=== PATIENT | female | born 1960 | race Caucasian/White ===

== ENCOUNTER → 2016-12-22 | Outpatient (CLI) | payer MEDICARE ==
--- NOTE | 2016-12-22 14:59 | CT ---
EXAMINATION TYPE: CT sinus wo con DATE OF EXAM: 12/22/2016 2:37 PM COMPARISON: NONE HISTORY: Chronic maxillary sinusitis per prescription. Face pain and sinus infection Since September 222015 per patient, history of prior sinus surgery CT DLP: 591 mGycm. Automated Exposure Control for Dose Reduction was Utilized. TECHNIQUE: CT scan of the sinuses is performed without contrast, axial images are obtained, coronal r eformatted images are also reviewed. FINDINGS: There is 8 mm mucous retention cyst or polyp in the posterior inferior right maxillary sinu s. There is evidence of prior surgery at ostiomeatal complex bilaterally. No new suspicious opacifica tion or air-fluid levels is present. The surgically treated ostiomeatal complex is patent bilaterall y on the coronal images. Visualized portion of mastoid air cells show no abnormal opacification. The globes are intact bilate rally. IMPRESSION: Evidence of prior successful sinus surgery without acute sinus disease identified current ly.
== END | disposition home or self-care (01) ==
LOC: RADCTMAIN 14:13
PROVIDERS: ATTEND Internal Medicine
DX: J32.0 Chronic maxillary sinusitis (principal); Z98.890 Other specified postprocedural states
CPT/HCPCS: 70486

== ENCOUNTER → 2016-12-30 | Outpatient (CLI) | payer MEDICARE ==
--- NOTE | 2016-12-31 07:54 | MM ---
Reason for exam: screening (asymptomatic). Last mammogram was performed 1 year and 9 months ago. History: Patient history of other cancer. Taking hormonal contraceptives for 3 years. Physical Findings: A clinical breast exam by your physician is recommended on an annual basis and results should be correlated with mammographic findings. MG 3D Screening Mammo W/Cad Bilateral CC and MLO view(s) were taken. Prior study comparison: March 26, 2015, bilateral MG screening mammo w CAD. April 07, 2011, CAD bilateral diagnostic mammogram. The breast tissue is heterogeneously dense. This may lower the sensitivity of mammography. No significant changes when compared with prior studies. ASSESSMENT: Benign, BI-RAD 2 RECOMMENDATION: Routine screening mammogram of both breasts in 1 year.
== END | disposition home or self-care (01) ==
LOC: RADMAMWWP 10:48
PROVIDERS: ATTEND Obstetrics & Gynecology
DX: Z12.31 Encounter for screening mammogram for malignant neoplasm of breast (principal)
CPT/HCPCS: 77063; G0202

== ENCOUNTER → 2017-08-09 | Outpatient (CLI) | payer MEDICARE ==
--- NOTE | 2017-08-09 14:57 | US ---
EXAMINATION TYPE: US venous doppler duplex LE BI DATE OF EXAM: 08/09/2017 2:20 PM COMPARISON: NONE CLINICAL HISTORY: M79.661/M79.662 pain in lower extremities. Pt states bilateral leg pain SIDE PERFORMED: Bilateral TECHNIQUE: The lower extremity deep venous system is examined utilizing real time linear array sonog diane with graded compression, doppler sonography and color-flow sonography. VESSELS IMAGED: External Iliac Vein (EIV) Common Femoral Vein Deep Femoral Vein Greater Saphenous Vein * Femoral Vein Popliteal Vein Small Saphenous Vein * Proximal Calf Veins (* superficial vessels) Grayscale, color doppler, spectral doppler imaging performed of the deep veins of the lower extremiti es. There is normal flow, compressibility, vascular waveforms. Right Leg: Negative for DVT Left Leg: Negative for DVT IMPRESSION: No evidence for DVT at this time.
== END | disposition home or self-care (01) ==
LOC: RADUSWWP 13:56
PROVIDERS: ATTEND Internal Medicine Hematology & Oncology
DX: M79.662 Pain in left lower leg (principal); M79.661 Pain in right lower leg
CPT/HCPCS: 93970

== ENCOUNTER → 2018-03-23 | Outpatient (CLI) | payer MEDICARE ==
--- NOTE | 2018-03-27 11:10 | MM ---
Reason for exam: screening (asymptomatic). Last mammogram was performed 1 year and 3 months ago. History: Patient history of other cancer. Taking hormonal contraceptives for 3 years. Physical Findings: A clinical breast exam by your physician is recommended on an annual basis and results should be correlated with mammographic findings. MG 3D Screening Mammo W/Cad Bilateral CC and MLO view(s) were taken. Prior study comparison: December 30, 2016, bilateral MG 3d screening mammo w/cad. March 26, 2015, bilateral MG screening mammo w CAD. The breast tissue is heterogeneously dense. This may lower the sensitivity of mammography. No suspicious abnormality. No significant changes when compared with prior studies. ASSESSMENT: Negative, BI-RAD 1 RECOMMENDATION: Routine screening mammogram of both breasts in 1 year.
== END | disposition home or self-care (01) ==
LOC: RADMAMWWP 15:14
PROVIDERS: ATTEND Obstetrics & Gynecology
DX: Z12.31 Encounter for screening mammogram for malignant neoplasm of breast (principal)
CPT/HCPCS: 77063; 77067

== ENCOUNTER → 2019-05-01 | Outpatient (CLI) | payer MEDICARE ==
--- NOTE | 2019-05-02 12:50 | MM ---
Reason for exam: screening (asymptomatic). Last mammogram was performed 1 year and 1 month ago. History: Patient is postmenopausal and has history of other cancer at age 38. Taking hormonal contraceptives for 3 years. Physical Findings: A clinical breast exam by your physician is recommended on an annual basis and results should be correlated with mammographic findings. MG 3D Screening Mammo W/Cad Bilateral CC and MLO view(s) were taken. Prior study comparison: March 23, 2018, bilateral MG 3d screening mammo w/cad. December 30, 2016, bilateral MG 3d screening mammo w/cad. The breast tissue is heterogeneously dense. This may lower the sensitivity of mammography. No suspicious abnormality. No significant new finding when compared with prior studies. ASSESSMENT: Negative, BI-RAD 1 RECOMMENDATION: Routine screening mammogram of both breasts in 1 year.
== END | disposition home or self-care (01) ==
LOC: RADMAMWWP 09:24
PROVIDERS: ATTEND Family Medicine
DX: Z12.31 Encounter for screening mammogram for malignant neoplasm of breast (principal)
CPT/HCPCS: 77063; 77067

== ENCOUNTER → 2019-08-13 | Outpatient (CLI) | payer MEDICARE ==
--- NOTE | 2019-08-13 13:55 | US ---
EXAMINATION TYPE: US kidneys/renal and bladder DATE OF EXAM: 08/13/2019 COMPARISON: NONE CLINICAL HISTORY: 58-year-old female N39.0 UTI. TECHNIQUE: Multiple sonographic images of the kidneys and bladder are obtained. FINDINGS: EXAM MEASUREMENTS: Right Kidney: 10.6 x 4.1 x 4.8 cm Left Kidney: 10.4 x 4.9 x 5.2 cm Right Kidney: Mild pelvicaliectasis. Left Kidney: No hydronephrosis. Bladder: wnl Bilateral Jets seen: Yes IMPRESSION: Mild right-sided pelvicaliectasis/hydronephrosis. This may be transient as the right ureteral jet is visualized. Short interval follow-up recommended.
== END | disposition home or self-care (01) ==
LOC: RADUSWWP 10:53
PROVIDERS: ATTEND Urology
DX: N39.0 Urinary tract infection, site not specified (principal); Z88.2 Allergy status to sulfonamides; Z88.1 Allergy status to other antibiotic agents; Z88.8 Allergy status to other drugs, medicaments and biological substances
CPT/HCPCS: 76770

== ENCOUNTER → 2020-01-02 | Outpatient (CLI) | payer MEDICARE ==
--- NOTE | 2020-01-02 13:02 | US ---
EXAMINATION TYPE: US kidneys/renal and bladder DATE OF EXAM: 01/02/2020 COMPARISON: US 08/13/2019 CLINICAL HISTORY: R93.4 History of hydronephrosis F/U. Follow up right hydronephrosis from 2019 ultra sound EXAM MEASUREMENTS: Right Kidney: 9.9 x 4.6 x 4.7 cm Left Kidney: 10.4 x 4.6 x 4.1 cm Right Kidney: Stable mild pelvocaliectasis Left Kidney: no hydronephrosis Bladder: wnl Bilateral Jets seen: no No nephrolithiasis is seen. No masses are identified. The urinary bladder is anechoic. Bilateral u reteral jets are seen. IMPRESSION: Stable mild right pelvocaliectasis in comparison to the ultrasound dated 08/13/2019. CT urogram could be considered if there is further clinical concern.
== END | disposition home or self-care (01) ==
LOC: RADUSWWP 11:47
PROVIDERS: ATTEND Urology
DX: N28.89 Other specified disorders of kidney and ureter (principal)
CPT/HCPCS: 76770

== ENCOUNTER 2020-01-29 10:22 | Emergency (ER) | payer MEDICARE ==
[2020-01-29 10:27] VITALS: RESP 18; TEMP 97.8
[2020-01-29] MEDS ORDERED: MORPHINE SULFATE 4 MG/ML SYRINGE IM STA (11:25)
--- NOTE | 2020-01-29 12:01 | CT ---
EXAMINATION TYPE: CT facial bones wo con DATE OF EXAM: 01/29/2020 HISTORY: right orbital contusion and neck pain post fall CT DLP: 815.9 mGycm. Automated Exposure Control for Dose Reduction was Utilized. TECHNIQUE: CT scan of the head is performed without contrast. COMPARISON: CT brain and cervical spine of the same day FINDINGS a small amount of fat stranding is seen inferior to the right orbit and anterior to the righ t maxilla. No well-defined hematoma seen. Globes are symmetric and intact maintaining a normal rounde d morphology with lenses in place. No post septal inflammatory fat stranding or fluid collection. Visualized paranasal sinuses and mastoid air cells are well aerated with scant mucosal thickening of the right maxillary sinus. Antrostomy defects are seen from prior surgery. No acute displaced facial bone fracture. Nasal septum and nasal spine are intact. Zygomatic arches are intact. Bony orbits appe ar intact. Visualized portions of the brain will be discussed in the brain dictation of the same date . IMPRESSION: 1. No acute displaced facial bone fracture. 2. Mild right infraorbital subcutaneous edema without well-defined hematoma. No CT evidence of globe rupture or post septal edema.
--- NOTE | 2020-01-29 12:01 | XR ---
EXAMINATION TYPE: XR knee limited RT DATE OF EXAM: 01/29/2020 CLINICAL HISTORY: Pain after fall injury few days earlier. TECHNIQUE: Three views of the right knee are obtained. COMPARISON: None. FINDINGS: There is no acute fracture/dislocation evident in right knee. Fairly moderate tricompartme nt joint space loss without significant spurring. The overlying soft tissue appears unremarkable. IMPRESSION: There is no acute fracture or dislocation in the right knee.
--- NOTE | 2020-01-29 12:02 | XR ---
EXAMINATION TYPE: XR tibia fibula LT DATE OF EXAM: 01/29/2020 CLINICAL HISTORY: Pain since falling injury a few days ago. TECHNIQUE: Two views of the left leg are obtained. COMPARISON: None. FINDINGS: There is no acute fracture or dislocation seen in the left tibia or fibula. The left knee joint shows [id number] tricompartment joint space loss. Visualized portion of the left ankle j oint is within normal limits. Mild diffuse subcutaneous edema lateral aspect noted. IMPRESSION: There is no acute fracture or dislocation seen in the left tibia or fibula.
--- NOTE | 2020-01-29 12:04 | XR ---
EXAMINATION TYPE: XR chest 2V DATE OF EXAM: 01/29/2020 COMPARISON: NONE HISTORY: Trauma several days prior and pain TECHNIQUE: Frontal and lateral views of the chest are obtained. FINDINGS: There is no focal air space opacity, pleural effusion, or pneumothorax seen. The cardiac silhouette size is within normal limits. The osseous structures are intact. IMPRESSION: No acute cardiopulmonary process.
--- NOTE | 2020-01-29 12:10 | CT ---
EXAMINATION TYPE: CT brain lauraine wo con DATE OF EXAM: 01/29/2020 COMPARISON: Facial bone CT of the same date HISTORY: right orbital contusion and neck pain post fall. Head and neck pain. CT DLP: 1100.1 mGycm. Automated Exposure Control for Dose Reduction was Utilized. TECHNIQUE: CT scan of the head and cervical spine are performed without contrast. FINDINGS: There is no acute intracranial hemorrhage, mass effect, or midline shift identified. The ventricles and sulci are within normal limits in size. The globes are intact and the visualized sin uses are clear. Calcification along the right tentorium cerebelli is incidentally seen. There is motion artifact on the images limiting evaluation. There is grade 1 anterolisthesis of C3 on C4 without facet malalignment. This is likely on a degenerative basis. There is also grade 1 anterol isthesis of C4 and C5 without facet malalignment. Mild to moderate degenerative changes of the cervic al spine with multilevel uncovertebral hypertrophy, anterior aspect, and intervertebral disc space na rrowing as well as facet arthropathy. Slight reversal usual cervical lordosis. Cervical spine is visu alized in its entirety from C1 through upper thoracic levels and demonstrates satisfactory alignment of vertebral body heights. Prevertebral soft tissue appears within normal limits. The C1-C2 articul ation is unremarkable. IMPRESSION: 1. Limited evaluation of the cervical spine due to patient motion. There is no gross evidence of acut e fracture or dislocation evident in the cervical spine. Moderate degenerative disc disease. Multilev el malalignment is likely on a degenerative basis. 2. No acute intracranial hemorrhage, mass effect, or midline shift is seen. 3. Reversal usual cervical lordosis may be on the basis of muscular strain/spasm or patient positioni ng.
[2020-01-29 12:25] VITALS: BP 149/89; PULSE 81
--- NOTE | 2020-01-29 12:59 | ED ---
Fall HPI - General Chief Complaint: Fall Stated Complaint: fall Time Seen by Provider: 01/29/20 11:01 Source: patient Mode of arrival: ambulatory - History of Present Illness Initial Comments: 59-year-old female presenting today for chief complaint of fallx 6 days ago. Patient on 325mg ASA, no other thinners. Patient states she fell while carrying her grandson child on of last week. Patient states that she hit her head she states she also hit her left anterior barbour and has had pain in the neck and right anterior knee, Denies abdominal pain, flank pain, nausea, vomiting. Admits to occasional MADRID, and fogginess. Denies chest pain, SOB, or syncope. Denies visual changes, speech changes, weakness, loss of bowel bladder control. Patient has no other complaints. Upon arrival patient appears well there is no signs of acute distress - Related Data Allergies Allergy/AdvReac Type Severity Reaction Status Date / Time divalproex sodium Allergy Unknown Verified 01/29/20 10:28 [From Depakote] egg Allergy Unknown Verified 01/29/20 10:28 erythromycin base Allergy Unknown Verified 01/29/20 10:28 Sulfa (Sulfonamide Allergy Unknown Verified 01/29/20 10:28 Antibiotics) topiramate [From Topamax] Allergy Unknown Verified 01/29/20 10:28 Review of Systems ROS Statement: Those systems with pertinent positive or pertinent negative responses have been documented in the HPI. ROS Other: All systems not noted in ROS Statement are negative. Past Medical History Past Medical History: Fibromyalgia Additional Past Medical History / Comment(s): lupus, osteopenia History of Any Multi-Drug Resistant Organisms: None Reported Past Psychological History: No Psychological Hx Reported Smoking Status: Never smoker Past Alcohol Use History: None Reported Past Drug Use History: None Reported General Exam - General Exam Comments Initial Comments: General: The patient is awake and alert, in no distress, and does not appear acutely ill. Eye: +3 mm pupils are equal, round and reactive to light, extra-ocular movements are intact. No nystagmus. There is normal conjunctiva bilaterally. No signs of icterus. Ears, nose, mouth and throat: There are moist mucous membranes and no oral lesions. Mild ecchymosis of the lower portion of the right eye. No proptosis. No palpable defect of the orbits. Patient is no raccoon or Hackett sign.TMs within normal limits. Neck: The neck is supple, there is no tenderness or JVD. Patient is palpable paravertebral tenderness of the cervical spine. Mild midline tenderness. Cardiovascular: There is a regular rate and rhythm. No murmur, rub or gallop is appreciated. Respiratory: Lungs are clear to auscultation, respirations are non-labored, breath sounds are equal. No wheezes, stridor, rales, or rhonchi. Gastrointestinal: Soft, non-distended, non-tender abdomen without masses or organomegaly noted. There is no rebound or guarding present. No flank or back bruising. No midline tenderness of the thoracic or lumbar spine. Musculoskeletal: Normal ROM, no tenderness of the hips, ankles, feet b/l. Mild tenderness to palpation of the right aneterior knee, very small circular bruise. Extensor mechanism intact. Strength 5/5 of the UE and LE b/l. Sensation intact of nayely UE and LE b/l. Radial and P pulses equal bilaterally 2+. Neurological: A&O x 3. CN II-XII intact, There are no obvious motor or sensory deficits. Coordination appears grossly intact. Speech is normal. Skin: Skin is warm and dry and no rashes or lesions are noted. Ecchymosis of the left lower anterior leg, mild swelling. Psychiatric: Cooperative, appropriate mood & affect, normal judgment. Limitations: no limitations Course Vital Signs 01/29/20 01/29/20 10:24 12:25 Temperature 97.8 F Pulse Rate 88 81 Respiratory 18 18 Rate Blood Pressure 138/84 149/89 O2 Sat by Pulse 98 100 Oximetry Medical Decision Making - Medical Decision Making 59yo female presents today for fall that occurred [address] of the brain C-spine revealed no acute abnormality. No fracture present. Patient has known neurovascular deficits. Patient has no weakness of the upper or lower extremity sparing the loss of bowel bladder control urinary retention. Patient did have some mild right anterior knee pain no evidence of fracture on physical examination week or so difficulty. There is ecchymosis the left anterior barbuor. Patient has swelling. Patient had no hip pain no low back or thoracic pain. At this time feel patient is stable for discharge with outpatient primary care follow-up. Return for emergent discussed at length as well as concussion protocols patient verbalized understanding was discharged appearing well patient doesn't follow up with her neurologist on Tuesday. Case was discussed with attending provider Dr. Pires who was agreeable to care plan and discharge. Disposition Clinical Impression: Fall, Ecchymosis of right eye, Left leg pain, Traumatic ecchymosis of left lower leg, Right knee pain, Neck pain, Concussion Disposition: HOME SELF-CARE Condition: Good Instructions (If sedation given, give patient instructions): Concussion (ED), Ecchymosis (ED) Additional Instructions: Please use medication as discussed. Please follow-up with family doctor in the next 2 days, neurologist on Tuesday as scheduled. Please return to emergency room if the symptoms increase or worsen or for any other concerns. Is patient prescribed a controlled substance at d/c from ED?: No Referrals: Karmen Calderon MD [Primary Care Provider] - 1-2 days Time of Disposition: 12:59
[2020-01-29] MEDS ORDERED: ACET/COD 300 MG/30 MG STARTER PACK 6 TAB BTL PO STA (13:04)
== END 2020-01-29 13:11 | disposition home or self-care (01) ==
LOC: EC 10:22
DX: S06.0X0A Concussion without loss of consciousness, initial encounter (principal); S05.11XA Contusion of eyeball and orbital tissues, right eye, initial encounter; S80.12XA Contusion of left lower leg, initial encounter; M25.561 Pain in right knee; M54.2 Cervicalgia; M79.7 Fibromyalgia; M85.80 Other specified disorders of bone density and structure, unspecified site; Z88.1 Allergy status to other antibiotic agents; Z88.2 Allergy status to sulfonamides; Z88.8 Allergy status to other drugs, medicaments and biological substances; Z91.012 Allergy to eggs; W19.XXXA Unspecified fall, initial encounter; Y93.89 Activity, other specified
CPT/HCPCS: 73590; 73560; 71046; 72125; 70486; 70450; 96372; 99284; J2270

== ENCOUNTER 2020-03-13 10:47 | Emergency (ER) | payer MEDICARE ==
[2020-03-13] MEDS ORDERED: SODIUM CHLORIDE 0.9% 1,000 ML IV STA (11:13)
--- NOTE | 2020-03-13 11:13 | ED ---
General Adult HPI - General Chief complaint: Nausea/Vomiting/Diarrhea Stated complaint: diarrhea Time Seen by Provider: 03/13/20 10:55 Source: patient Mode of arrival: ambulatory Limitations: no limitations - History of Present Illness Initial comments: Dictation was produced using [employer] dictation software. please excuse any grammatical, word or spelling errors. This patient was cared for during a federal and state declared state of emergency secondary to Covid 19 Chief Complaint: 59-year-old female with a remote history of colitis presents with diarrhea and fevers. History of Present Illness: A 59-year-old female she has past medical history of colitis. She states that over the last 3-4 days she's been dealing with diffuse brown watery diarrhea. Patient states that all started after she had some cooked chicken delivered to her house. She is concerned about bacterial infection. No recent hospitalizations. No recent antibiotics. No recent travel. No recent camping. Her urologist and was instructed to come to the emergency department. Patient states she's been low-grade fevers at home that are subjective. Denies any abdominal pain. No nausea or vomiting. The ROS documented in this emergency department record has been reviewed and confirmed by me. Those systems with pertinent positive or negative responses have been documented in the HPI. All other systems are other negative and/or noncontributory. PHYSICAL EXAM: General Impression: Alert and oriented x3, not in acute distress HEENT: Normocephalic atraumatic, extra-ocular movements intact, pupils equal and reactive to light bilaterally, mucous membranes moist. Cardiovascular: Heart regular rate and rhythm Chest: Able to complete full sentences, no retractions, no tachypnea Abdomen: Bowel sounds present, abdomen soft, non-tender, non-distended, no organomegaly, nontender and left lower quadrant. Musculoskeletal: Pulses present and equal in all extremities, no peripheral edema Motor: no focal deficits noted Neurological: CN II-XII grossly intact, no focal motor or sensory deficits noted Skin: Intact with no visualized rashes Psych: Normal affect and mood ED course: 59-year-old female presents with persistent diarrhea and constitutio nal symptoms. Vital signs upon arrival shows heart rate of 106. Rest of vital signs within acceptable limits. Patient's abdomen is soft. Laboratory evaluation obtained. CBC is unremarkable. Metabolic panel is negative. Rotavirus test is negative. Patient will be given she is for antibiotics for concern of bacterial colitis. She is advised follow-up with primary care physician regarding symptoms. - Related Data Home Medications Medication Instructions Recorded Confirmed Alendronate Sodium 70 mg PO TU 03/13/20 03/13/20 Butalb/APAP/Caff 50-325-40Mg 1 tab PO DAILY PRN 03/13/20 03/13/20 [Fioricet 50-325-40] DULoxetine HCL [Cymbalta] 60 mg PO BID 03/13/20 03/13/20 Fexofenadine HCl [Norma Allergy] 180 mg PO DAILY PRN 03/13/20 03/13/20 Hydroxychloroquine Sulfate 200 mg PO BID 03/13/20 03/13/20 [Plaquenil] Levothyroxine Sodium [Synthroid] 125 mcg PO DAILY 03/13/20 03/13/20 Montelukast [Singulair] 10 mg PO DAILY 03/13/20 03/13/20 Naproxen Sodium 550 mg PO DAILY PRN 03/13/20 03/13/20 QUEtiapine [SEROquel] 100 - 200 mg PO HS 03/13/20 03/13/20 Verapamil [Isoptin] 40 mg PO DAILY 03/13/20 03/13/20 Previous Rx's Medication Instructions Recorded Ciprofloxacin [Cipro Susp] 500 mg PO BID 5 Days #10 ml 03/13/20 Allergies Allergy/AdvReac Type Severity Reaction Status Date / Time divalproex sodium Allergy Unknown Verified 03/13/20 11:51 [From Depakote] egg Allergy Unknown Verified 03/13/20 11:51 erythromycin base Allergy Unknown Verified 03/13/20 11:51 Sulfa (Sulfonamide Allergy Unknown Verified 03/13/20 11:51 Antibiotics) topiramate [From Topamax] Allergy Unknown Verified 03/13/20 11:51 Review of Systems ROS Statement: Those systems with pertinent positive or pertinent negative responses have been documented in the HPI. ROS Other: All systems not noted in ROS Statement are negative. Past Medical History Past Medical History: Fibromyalgia Additional Past Medical History / Comment(s): lupus, osteopenia History of Any Multi-Drug Resistant Organisms: None Reported Past Psychological History: No Psychological Hx Reported Smoking Status: Never smoker Past Alcohol Use History: None Reported Past Drug Use History: None Reported General Exam Limitations: no limitations Course Vital Signs 03/13/20 03/13/20 10:52 11:21 Temperature 98.3 F Pulse Rate 106 H 86 Respiratory 18 18 Rate Blood Pressure 113/69 123/85 O2 Sat by Pulse 100 97 Oximetry Medical Decision Making - Lab Data Result diagrams: 03/13/20 11:15 03/13/20 11:15 Lab Results 03/13/20 03/13/20 03/13/20 Range/Units 11:15 11:15 11:15 WBC 6.8 (3.8-10.6) k/uL RBC 5.08 (3.80-5.40) m/uL Hgb 15.3 (11.4-16.0) gm/dL Hct 47.6 H (34.0-46.0) % MCV 93.7 (80.0-100.0) fL MCH 30.2 (25.0-35.0) pg MCHC 32.2 (31.0-37.0) g/dL RDW 12.7 (11.5-15.5) % Plt Count 249 (150-450) k/uL Neutrophils % 69 % Lymphocytes % 19 % Monocytes % 5 % Eosinophils % 5 % Basophils % 1 % Neutrophils # 4.7 (1.3-7.7) k/uL Lymphocytes # 1.3 (1.0-4.8) k/uL Monocytes # 0.3 (0-1.0) k/uL Eosinophils # 0.3 (0-0.7) k/uL Basophils # 0.1 (0-0.2) k/uL Sodium 138 (137-145) mmol/L Potassium 3.7 (3.5-5.1) mmol/L Chloride 101 (98-107) mmol/L Carbon Dioxide 29 (22-30) mmol/L Anion Gap 8 mmol/L BUN 16 (7-17) mg/dL Creatinine 0.64 (0.52-1.04) mg/dL Est GFR (CKD-EPI)AfAm >90 (>60 ml/min/1.73 sqM) Est GFR (CKD-EPI)NonAf >90 (>60 ml/min/1.73 sqM) Glucose 86 (74-99) mg/dL Plasma Lactic Acid Heriberto 1.0 (0.7-2.0) mmol/L Calcium 9.8 (8.4-10.2) mg/dL Magnesium 1.8 (1.6-2.3) mg/dL Total Bilirubin 0.4 (0.2-1.3) mg/dL AST 25 (14-36) U/L ALT 10 (4-34) U/L Alkaline Phosphatase 102 (38-126) U/L C-Reactive Protein <5.0 (<10.0) mg/L Total Protein 7.3 (6.3-8.2) g/dL Albumin 4.6 (3.5-5.0) g/dL Coronavirus (PCR) (Not Detectd) 03/13/20 Range/Units 11:15 WBC (3.8-10.6) k/uL RBC (3.80-5.40) m/uL Hgb (11.4-16.0) gm/dL Hct (34.0-46.0) % MCV (80.0-100.0) fL MCH (25.0-35.0) pg MCHC (31.0-37.0) g/dL RDW (11.5-15.5) % Plt Count (150-450) k/uL Neutrophils % % Lymphocytes % % Monocytes % % Eosinophils % % Basophils % % Neutrophils # (1.3-7.7) k/uL Lymphocytes # (1.0-4.8) k/uL Monocytes # (0-1.0) k/uL Eosinophils # (0-0.7) k/uL Basophils # (0-0.2) k/uL Sodium (137-145) mmol/L Potassium (3.5-5.1) mmol/L Chloride (98-107) mmol/L Carbon Dioxide (22-30) mmol/L Anion Gap mmol/L BUN (7-17) mg/dL Creatinine (0.52-1.04) mg/dL Est GFR (CKD-EPI)AfAm (>60 ml/min/1.73 sqM) Est GFR (CKD-EPI)NonAf (>60 ml/min/1.73 sqM) Glucose (74-99) mg/dL Plasma Lactic Acid Heriberto (0.7-2.0) mmol/L Calcium (8.4-10.2) mg/dL Magnesium (1.6-2.3) mg/dL Total Bilirubin (0.2-1.3) mg/dL AST (14-36) U/L ALT (4-34) U/L Alkaline Phosphatase (38-126) U/L C-Reactive Protein (<10.0) mg/L Total Protein (6.3-8.2) g/dL Albumin (3.5-5.0) g/dL Coronavirus (PCR) Not Detected (Not Detectd) Disposition Clinical Impression: Diarrhea Disposition: HOME SELF-CARE Condition: Good Instructions (If sedation given, give patient instructions): Acute Diarrhea (ED) Prescriptions: Ciprofloxacin [Cipro Susp] 500 mg PO BID 5 Days #10 ml Is patient prescribed a controlled substance at d/c from ED?: No Referrals: Karmen Calderon MD [Primary Care Provider] - 1-2 days Time of Disposition: 12:07
[2020-03-13 11:27] LABS: Basophils # (A) 0.1 k/uL (0-0.2); Basophils % (A) 1 %; Eosinophils # (A) 0.3 k/uL (0-0.7); Eosinophils % (A) 5 %; HCT 47.6 % (34.0-46.0); HGB 15.3 gm/dL (11.4-16.0); Lymphocytes # (A) 1.3 k/uL (1.0-4.8); Lymphocytes % (A) 19 %; MCH 30.2 pg (25.0-35.0); MCHC 32.2 g/dL (31.0-37.0); MCV 93.7 fL (80.0-100.0); Mean Platelet Volume 7.4; Monocytes # (A) 0.3 k/uL (0-1.0); Monocytes % (A) 5 %; Neutrophils # (A) 4.7 k/uL (1.3-7.7); Neutrophils % (A) 69 %; Platelet Count 249 k/uL (150-450); RBC 5.08 m/uL (3.80-5.40); RDW 12.7 % (11.5-15.5); WBC 6.8 k/uL (3.8-10.6)
[2020-03-13 11:43] LABS: Sodium 138 mmol/L (137-145)
[2020-03-13 11:46] LABS: ALT 10 U/L (4-34); AST 25 U/L (14-36); African American GFR (CKD) >90 (>60 ml/min/1.73 sqM); Albumin 4.6 g/dL (3.5-5.0); Alkaline Phosphatase 102 U/L (38-126); Anion Gap 8 mmol/L; Blood Urea Nitrogen 16 mg/dL (7-17); C Reactive Protein <5.0 mg/L (<10.0); Calcium 9.8 mg/dL (8.4-10.2); Carbon Dioxide 29 mmol/L (22-30); Chloride 101 mmol/L (98-107); Glucose 86 mg/dL (74-99); Magnesium 1.8 mg/dL (1.6-2.3); Non-African American GFR(CKD) >90 (>60 ml/min/1.73 sqM); Potassium 3.7 mmol/L (3.5-5.1); Total Bilirubin 0.4 mg/dL (0.2-1.3); Total Protein 7.3 g/dL (6.3-8.2)
--- NOTE | 2020-03-13 11:47 | XR ---
EXAMINATION TYPE: XR chest 1V portable DATE OF EXAM: 03/13/2020 COMPARISON: Chest x-ray January 29, 2020. HISTORY: Fever and chills for one week. Suspected COVID-19 pneumonia TECHNIQUE: Single AP portable frontal upright view of the chest is obtained. FINDINGS: Suboptimal due to overlying bra strap. There is chronic parenchymal change without suspici ous new focal air space opacity, pleural effusion, or pneumothorax seen. The cardiac silhouette size remains within normal limits. The osseous structures are intact. IMPRESSION: No new Suspicious acute infiltrate. No significant change from prior.
[2020-03-13 12:34] VITALS: BP 120/70; PULSE 94; RESP 14; TEMP 98.2
== END 2020-03-13 12:27 | disposition home or self-care (01) ==
LOC: EC 10:47
DX: R19.7 Diarrhea, unspecified (principal); R50.9 Fever, unspecified; Z79.890 Hormone replacement therapy; Z79.899 Other long term (current) drug therapy; Z88.1 Allergy status to other antibiotic agents; Z88.2 Allergy status to sulfonamides; Z88.8 Allergy status to other drugs, medicaments and biological substances; Z91.012 Allergy to eggs
CPT/HCPCS: 36415; 71045; 80053; 83605; 83735; 85025; 86140; 87635; 93005; 96360; 99284

== ENCOUNTER → 2021-09-30 | Outpatient (CLI) | payer MEDICARE ==
--- NOTE | 2021-10-02 13:23 | MM ---
Reason for exam: screening (asymptomatic). Last mammogram was performed 2 years and 5 months ago. History: Patient is postmenopausal and has history of other cancer at age 38. Taking hormonal contraceptives for 3 years. Physical Findings: A clinical breast exam by your physician is recommended on an annual basis and results should be correlated with mammographic findings. MG 3D Screening Mammo W/Cad Bilateral CC and MLO view(s) were taken. Prior study comparison: May 01, 2019, bilateral MG 3d screening mammo w/cad. March 23, 2018, bilateral MG 3d screening mammo w/cad. There are scattered fibroglandular densities. No significant changes when compared with prior studies. ASSESSMENT: Benign, BI-RAD 2 RECOMMENDATION: Routine screening mammogram of both breasts in 1 year.
== END | disposition home or self-care (01) ==
LOC: RADMAMWWP 13:27
PROVIDERS: ATTEND Obstetrics & Gynecology
DX: Z12.31 Encounter for screening mammogram for malignant neoplasm of breast (principal); Z78.0 Asymptomatic menopausal state
CPT/HCPCS: 77063; 77067

== ENCOUNTER → 2024-09-10 | Outpatient (CLI) | payer MEDICARE ==
--- NOTE | 2024-09-11 19:11 | MM ---
Reason for Exam: Screening (asymptomatic). Last mammogram was performed 2 year(s) and 11 month(s) ago. Patient History: Menarche at age 11. First Full-Term at age 23. Postmenopausal. Other cancer, age 38. Patient used Hormonal Contraceptives for 3 years. Risk Values: Sarah 5 year model risk: 1.5%. NCI Lifetime model risk: 5.6%. Prior Study Comparison: 03/23/2018 Bilateral Screening Mammogram, [facility]. 05/01/2019 Bilateral Screening Mammogram, [facility]. 09/30/2021 Bilateral Screening Mammogram, [facility]. Tissue Density: The breasts are heterogeneously dense, which may obscure small masses. Findings: Analyzed By CAD. There is no suspicious group of microcalcifications or new suspicious mass in either breast. Overall Assessment: Negative, BI-RAD 1 Management: Screening Mammogram of both breasts in 1 year. . Patient should continue monthly self-breast exams. A clinical breast exam by your physician is recommended on an annual basis. This exam should not preclude additional follow-up of suspicious palpable abnormalities. Note on Sarah scores and lifetime risk: 1. A Sarah score greater than 3% is considered moderate risk. If this is the case, consider specialist referral to assess eligibility for a risk reducing agent. 2. If overall lifetime risk for the development of breast cancer is 20% or higher, the patient may qualify for future screening with alternating mammogram and breast MRI. [facility], , 09/11/2024 7:09 PM. Electronically signed and approved by: Leanna Schmid M.D. Radiologist
== END | disposition home or self-care (01) ==
LOC: RADMAMWWP 09:56
PROVIDERS: ATTEND Family Medicine
CPT/HCPCS: 77063; 77067